=== PATIENT | male | born 1980 | race Caucasian/White ===

== ENCOUNTER 2017-09-11 16:16 | Inpatient (IN) ==
[2017-09-11] MEDS ORDERED: Mag Hydrox/Al Hydrox/Simeth 30 ML UDC PO PRN (17:16)
[2017-09-11] MEDS ORDERED: *HR* LORazepam 1 MG TABLET PO PRN (17:16)
[2017-09-11] MEDS ORDERED: Ibuprofen 400 MG TABLET PO PRN (17:16)
[2017-09-11] MEDS ORDERED: *HR* LORazepam 2 MG/ML VIAL IM PRN (17:16)
[2017-09-11] MEDS ORDERED: MOM Conc 10 ML UD.LIQ PO PRN (17:16)
[2017-09-11] MEDS ORDERED: Haloperidol Lactate 5 MG/ML VIAL IM PRN (17:16)
[2017-09-11] MEDS: traZODone 50 MG TABLET PO PRN (21:20)
[2017-09-11] MEDS: hydrOXYzine pamoate 25 MG CAPSULE PO PRN (21:21)
--- NOTE | 2017-09-12 13:16 | Psychiatry History & Physical ---
Date of Encounter: 09/12/17 Time of Encounter: 11:50 History of Present Illness Patient Stated Chief Complaint: "I am depresed." Medicare Admission Attestation: For traditional Medicare patients the provided hospital inpatient services are reasonable and necessary and in the case of services not specified as inpatient -only under 42 CFR 419.22 (n), that they are appropriately provided as inpatient services in accordance 42 CFR 412.3. For [facility] the patient may reasonably be expected to be discharged or transferred to a hospital within 96 hours after admission to the [facility]. Admitted From: Direct Admit History of Present Illness: Mr. Ortez is a 37 year old male with a history of opiate dependence and substance abuse who presented to the hospital reporting increased depression and suicidal ideation. He was a direct admission to for psychiatric stabilization. The patient states that he is depressed and he wants to but he would also like to go to the [facility] on discharge. He does not want medications and his depression. When asked why he states "I just do not." He states he will consider going to groups. He does report difficulty sleeping. He requests a sleep aid right now so he go to sleep but does not want to take one at bedtime. He continues to report suicidal ideation but will not state what his plan is. "I do not want to talk about it." He denies homicidal ideation. He denies auditory or visual hallucinations. He does feel that his opiate dependence is playing a role in his depression. Past Med Surg Social Fam HX - Past Medical History Medical history: no medical history - Past Psychiatric History Psychiatric history: Reports: other (History of rehabilitation for drug addiction.). Denies: prior suicide attempt, previous psychiatric hospitalization Past psychiatric history details: Does not want to take psych meds. Reports suicidal thoughts worsening the last couple of weeks. Rehabilitation but no other counseling or mental health services. Family History of Suicide: Completed (Uncle) - Past Surgical History Surgical History: no surgical history - Social History Smoking Status: Current every day smoker Smokeless Tobacco Status: No Alcohol use: occasionally Drug use: opiates, marijuana, IV Drug Use, prescription drug abuse Occupational status: unemployed Current living situation: Homeless - Family History Mother Adopted: [place]: [place] Family Member Ethnicity: Non- Living Status: Still Living Hx Family Cardiac Disorders: No Hx Family Respiratory Disorders: No Hx Family Cancer: No Hx Family GI Disorders: No Hx Family Genitourinary Disorders: No Hx Family Endocrine Disorder: No Hx Family Musculoskeletal Disorders: No Hx Family Neurologic Disorders: No Hx Family HEENT Disorders: No Hx Family Autoimmune Disorders: No Hx Family Reproductive Disorders: No Hx Family Psychosocial Disorders: No Hx Family Medical Disorders: No Medications & Allergies No Known Home Drugs 03/28/17 [History] 3 Allergy/AdvReac Type Severity Reaction Status Date / Time No Known Allergies Allergy Verified 09/11/17 09:13 Review of Systems Constitutional: Denies: fever, chills, weakness, weight change Eyes: Denies: eye pain, vision change Ears, Nose, Throat: Denies: ear pain, throat pain, dental pain, hearing loss, congestion Cardiovascular: Denies: chest pain, palpitations, dyspnea on exertion Respiratory: Denies: cough, dyspnea, wheezes Gastrointestinal: Denies: abdominal pain, nausea, vomiting, diarrhea, constipation Genitourinary male: Denies: urgency, dysuria, frequency, genital lesions Genitourinary female: Denies: urgency, dysuria, frequency, abnormal menses, dyspareunia Musculoskeletal: Denies: joint swelling, joint pain Integumentary: Denies: rash, lesions, pruritus Neurological: Denies: headache, weakness, numbness, memory loss Psychiatric: Reports: depression, abnormal sleep pattern, hopelessness, mood swings, panic attacks Endocrine: Denies: fatigue, heat or cold intolerance Hematologic/Lymphatic: Denies: easy bruising, lymphadenopathy Allergic/Immunologic: Denies: urticaria, itchy eyes Mental Status Exam Patient orientation: Yes Person, Yes Time, Yes Place Level of alertness: Alert Patient appearance: Appropriate Behavior: uncooperative, guarded Psychomotor activity: Normal Eye contact: Minimal Contact Mood description: Depressed Affect description: flat Speech pattern: Normal rate, Normal rhythm, Normal tone Speech volume: Normal Thought process: Intact Thought content: Yes Poverty of Content Perceptual disturbances: No Auditory hallucinations, No Visual hallucinations Attention span: Capable of Focused Attention Memory description: Grossly Intact Patient reliability: Questionable Historian Intelligence estimate: Average Judgment: Limited Insight: Minimal Exam - HEENT Head exam IM: Present: atraumatic Eye exam IM: Present: EOMI - Neurological Neurological exam IM: Present: CN II-XII intact Results - Vital Signs Vital signs: Temp Pulse Resp BP 97.8 F 83 16 106/73 09/12/17 09:00 09/12/17 09:00 09/12/17 09:00 09/12/17 09:00 Assessment and Plan (1) Depression Current visit: Yes Status: Acute Plan: Admit inpatient for safety and stabilization, Close observation, Suicide Precautions per unit protocol, Encourage participation in unit milieu, Group Therapy, Monitor sleep, Monitor appetite Additional Plan: Patient reports depression and vague SI. Admitted to 1A for stabilization. When necessary meds for now and we will continue to discuss the benefits of antidepressants. Encourage group attendance. Risks, benefits, side effects, alternatives discussed w/pt: Yes Patient agreeable to treatment: Yes Estimated Length of Stay (Days): 3 Qualifiers: Depression Type: major depressive disorder Major depression recurrence: recurrent Active/Remission status: currently active Major depression episode severity: moderate Qualified Code(s): F33.1 - Major depressive disorder, recurrent, moderate (2) Alcohol dependence Current visit: Yes Status: Acute Plan: Admit inpatient for safety and stabilization Additional Plan: Patient denies alcohol use but is alcohol level was elevated at the hospital. Monitor closely for withdrawal. Vitals are currently stable. Risks, benefits, side effects, alternatives discussed w/pt: Yes Patient agreeable to treatment: Yes Qualifiers: Substance use status: uncomplicated Qualified Code(s): F10.20 - Alcohol dependence, uncomplicated (3) Opiate dependence Current visit: Yes Status: Acute Plan: Admit inpatient for safety and stabilization, Close observation, Suicide Precautions per unit protocol, Encourage participation in unit milieu, Group Therapy, Monitor sleep, Monitor appetite Additional Plan: Encouraged patient to consider inpatient rehabilitation and call for a bed. Encouraged patient to discontinue drug use. Monitor for withdrawal. Risks, benefits, side effects, alternatives discussed w/pt: Yes Patient agreeable to treatment: Yes Qualifiers: Substance use status: uncomplicated Qualified Code(s): F11.20 - Opioid dependence, uncomplicated
[2017-09-12] MEDS: hydrOXYzine pamoate 25 MG CAPSULE PO PRN ×2 (17:04→22:39)
[2017-09-12] MEDS: traZODone 50 MG TABLET PO PRN (20:59)
[2017-09-12] MEDS: Nicotine 2 MG GUM BC PRN (20:59)
[2017-09-13] MEDS ORDERED: traZODone 50 MG TABLET PO STA (00:47)
[2017-09-13] MEDS ORDERED: cloNIDine HCl 0.1 MG TABLET PO ONE (00:47)
[2017-09-13] MEDS ORDERED: traZODone 50 MG TABLET PO PRN (10:23)
--- NOTE | 2017-09-13 12:33 | Psychiatry Progress Note ---
Date of Encounter: 09/13/17 Time of Encounter: 10:00 Subjective Interval history: Patient seen today for follow-up. He does report some opiate withdrawal symptoms but does not think the clonidine and trazodone prescribed last night was very helpful. He does request that we continue these medications however. He continues to endorse vague suicidal ideation without plan although patient states that it is better today than it was yesterday. He feels a little more hopeful about his future. Patient is still interested in potentially going to the medical clinic at discharge. He is discussing this with our social media project manager. Patient is minimally interactive with peers and staff. Review of Systems Psychiatric: Reports: depression, abnormal sleep pattern, suicidal ideation, mood swings Objective: Exam Patient orientation: Yes Person, Yes Time, Yes Place Level of alertness: Alert Patient appearance: Appropriate Behavior: guarded Psychomotor activity: Normal Eye contact: Diverts Contact Mood description: Depressed Affect description: euthymic, incongruent with mood Speech pattern: Normal rate, Normal rhythm, Normal tone Speech volume: Normal Thought process: Intact Thought content: Yes Suicidal ideation Perceptual disturbances: No Auditory hallucinations, No Visual hallucinations Judgment: Limited Insight: Minimal Results - Vital Signs Vital Signs: Temp Pulse Resp BP 98.4 F 69 16 118/80 09/12/17 21:00 09/13/17 01:04 09/12/17 21:00 09/13/17 01:04 Assessment and Plan (1) Depression Current visit: Yes Status: Acute Plan: Continue hospitalization, Close observation Additional Plan: We will continue trazodone. Patient does not want antidepressants for his mood. Encourage group attendance. Risks, benefits, side effects, alternatives discussed w/pt: Yes Patient agreeable to treatment: Yes Qualifiers: Depression Type: major depressive disorder Major depression recurrence: recurrent Active/Remission status: currently active Major depression episode severity: moderate Qualified Code(s): F33.1 - Major depressive disorder, recurrent, moderate (2) Alcohol dependence Current visit: Yes Status: Acute Plan: Continue hospitalization, Close observation, Suicide Precautions per unit protocol, Encourage participation in unit milieu, Group Therapy, Monitor sleep, Monitor appetite Additional Plan: No withdrawal signs from alcohol noted. Continue to monitor vitals. Risks, benefits, side effects, alternatives discussed w/pt: Yes Patient agreeable to treatment: Yes Qualifiers: Substance use status: uncomplicated Qualified Code(s): F10.20 - Alcohol dependence, uncomplicated (3) Opiate dependence Current visit: Yes Status: Acute Plan: Continue hospitalization, Close observation, Suicide Precautions per unit protocol, Encourage participation in unit milieu, Group Therapy, Monitor sleep, Monitor appetite Additional Plan: Clonidine and Vistaril for now. Patient reported mild withdrawal symptoms including some restlessness. Risks, benefits, side effects, alternatives discussed w/pt: Yes Patient agreeable to treatment: Yes Qualifiers: Substance use status: in withdrawal Qualified Code(s): F11.23 - Opioid dependence with withdrawal Consult Discharge Plan - Plan Referrals: NONE,PCP [Primary Care Provider] -
[2017-09-13] MEDS: Nicotine 2 MG GUM BC PRN ×4 (15:58→22:40)
[2017-09-13] MEDS: hydrOXYzine pamoate 25 MG CAPSULE PO PRN (20:15)
[2017-09-13] MEDS ORDERED: cloNIDine HCl 0.1 MG TABLET PO SCH (21:00)
[2017-09-14] MEDS ORDERED: traZODone 50 MG TABLET PO ONE (00:29)
[2017-09-14] MEDS: Nicotine 2 MG GUM BC PRN ×2 (10:03→13:50)
--- NOTE | 2017-09-14 11:16 | Discharge Summary ---
Date of Encounter: 09/14/17 Time of Encounter: 08:00 Diagnosis - Discharge Diagnosis (1) Depression Priority: Primary Status: Acute Qualifiers: Depression Type: major depressive disorder Major depression recurrence: recurrent Active/Remission status: currently active Major depression episode severity: moderate Qualified Code(s): F33.1 - Major depressive disorder, recurrent, moderate (2) Alcohol dependence Priority: Secondary Status: Acute Qualifiers: Substance use status: uncomplicated Qualified Code(s): F10.20 - Alcohol dependence, uncomplicated (3) Opiate dependence Status: Acute Qualifiers: Substance use status: in withdrawal Qualified Code(s): F11.23 - Opioid dependence with withdrawal Medications - Discharge Medications No Known Home Drugs 03/28/17 [History] 3 Allergy/AdvReac Type Severity Reaction Status Date / Time No Known Allergies Allergy Verified 09/11/17 09:13 Provider Date of admission: 09/12/17 14:30 Primary care physician: PCP NONE Discharging clinician: Stacy Nelson Assessment and Plan - Patient/Caregiver Discharge Instructions Activity: resume usual activities as tolerated Diet: regular diet - Follow up Plan Follow up with: NONE,PCP [Primary Care Provider] - Disposition: Home, Self-Care Hospital Course Hospital course: Mr. Ortez is a 37 year old male with depression and substance abuse as well as alcohol abuse who presented to the hospital with suicidal ideations. He was admitted to for psychiatric stabilization. Patient was incorporated into the therapeutic milieu and individual as well as recreational therapy. He was also offered psychoeducational materials and supportive therapy. He was placed on suicide precautions per unit protocol. Patient anticipated minimally in the therapeutic milieu. Throughout the course of the hospital stay he did note some improvement in his mood. He began to deny suicidal ideation. At the time of discharge she denied suicidal or homicidal ideation, intent, or plan. He states he does want to stay off opiates and alcohol and reports that he thinks this is the reason for his depression in the first place. He does not want any psychiatric medications at this time. He was also given information about rehabilitation and substance abuse treatment. He is discharged in stable condition. Does patient wish to continue nicotine replacement upon disc: No - Time Spent with Patient Total time spent providing and/or coordinating discharge services: Less than 30 minutes Quality - Multiple Antipsychotics Patient discharged on 2 or more antipsychotic medications: No Procedures - Procedures Procedures: Medication Management, Crisis Stabilization, Supportive Therapy, Group Therapy, Psychoeducational Therapy Mental Status Exam - Mental Status Exam Patient orientation: Yes Person, Yes Time, Yes Place Level of alertness: Alert Patient appearance: Appropriate, Well Groomed Behavior: calm, cooperative Psychomotor activity: Normal Eye contact: Maintains Eye Contact Mood description: Euthymic/stable Affect description: congruent with mood, full range Speech pattern: Normal rate, Normal rhythm, Normal tone Speech Volume: Normal Thought process: Linear, Goal Oriented Thought Content: No Suicidal ideation, No Homicidal ideation, No Overt delusions Perceptual Disturbances: No Auditory hallucinations, No Visual hallucinations Judgment: Limited Insight: Minimal
[2017-09-14 11:43] VITALS: BP 105/71
== END 2017-09-14 14:26 | disposition home or self-care (01) | DRG 751 ==
LOC: INTOOBSV 16:16 → 1ANU 16:16
PROVIDERS: ADMIT Student in an Organized Health Care Education/Training Program; ATTEND Student in an Organized Health Care Education/Training Program